=== PATIENT | female | born 1990 | race Caucasian/White ===

== ENCOUNTER 2016-05-31 07:30 | Inpatient (IN) | payer OTHER ==
[~2016-05-31] VITALS: Ht 152.4 cm; Wt 63.5 kg
[2016-05-31 08:22] LABS: HEMOGLOBIN 11.2 gm/dl (12.3-15.3); RED BLOOD COUNT 4.21 M/UL (4.00-5.10); WHITE BLOOD COUNT 15.6 K/UL (4.5-11.0)
[2016-06-01 03:58] LABS: HEMOGLOBIN 8.8 gm/dl (12.3-15.3)
== END 2016-06-03 12:26 | disposition home or self-care (01) | DRG 765 ==
LOC: OB 07:39
PROVIDERS: ADMIT Obstetrics & Gynecology
PROC: 10D00Z1 Extraction of Products of Conception, Low, Open Approach (ICD-10-PCS; principal; 2016-05-31 07:30)
DX: O34.211 Maternal care for low transverse scar from previous cesarean delivery (principal); O99.324 Drug use complicating childbirth; N85.8 Other specified noninflammatory disorders of uterus; F11.10 Opioid abuse, uncomplicated; Z3A.39 39 weeks gestation of pregnancy; Z37.0 Single live birth; O99.333 Smoking (tobacco) complicating pregnancy, third trimester; Z88.0 Allergy status to penicillin
CPT/HCPCS: 36415; 80307; 81001; 82800; 85014; 85018; 85025; C9113; J1200; J1580; J1885; J2270; J2274; J2405; J2590; J2765; J7120

== ENCOUNTER 2020-08-29 06:05 | Inpatient (IN) | payer OTHER ==
[~2020-08-29] VITALS: Ht 152.4 cm; Wt 73.5 kg
[2020-08-29 06:46] LABS: HEMOGLOBIN 12.4 gm/dl (12.3-15.3); RED BLOOD COUNT 4.33 M/UL (4.00-5.10); WHITE BLOOD COUNT 16.1 K/UL (4.5-11.0)
[2020-08-29] MEDS ORDERED: SUBOXONE 4 MG-1 EACH SL (07:35)
[2020-08-29] MEDS ORDERED: MACROBID 100 M100 MG PO (07:36)
[2020-08-29] MEDS ORDERED: HYDROCODON-ACE1 EAC6 PO (09:39)
[2020-08-29] MEDS ORDERED: IBUPROFEN600 MG PO (09:39)
[2020-08-29] MEDS ORDERED: COLACE 100MG C100 MG PO (09:39)
[2020-08-30 06:31] LABS: HEMOGLOBIN 8.4 gm/dl (12.3-15.3)
== END 2020-08-31 16:01 | disposition home or self-care (01) | DRG 787 ==
LOC: OB 06:05
PROVIDERS: ADMIT Obstetrics & Gynecology
PROC: 4A1HXCZ Monitoring of Products of Conception, Cardiac Rate, External Approach (ICD-10-PCS; 2020-08-29)
PROC: 10D00Z1 Extraction of Products of Conception, Low, Open Approach (ICD-10-PCS; principal; 2020-08-29 09:00)
DX: O34.211 Maternal care for low transverse scar from previous cesarean delivery (principal); O98.42 Viral hepatitis complicating childbirth; O99.324 Drug use complicating childbirth; Z20.822 Contact with and (suspected) exposure to COVID-19; F11.20 Opioid dependence, uncomplicated; Z37.0 Single live birth; Z3A.39 39 weeks gestation of pregnancy; B19.20 Unspecified viral hepatitis C without hepatic coma; O99.344 Other mental disorders complicating childbirth; F43.10 Post-traumatic stress disorder, unspecified; F41.9 Anxiety disorder, unspecified; F32.9 Major depressive disorder, single episode, unspecified
CPT/HCPCS: 36415; 71045; 80307; 81001; 82800; 85014; 85018; 85025; 94760; C9113; J1580; J1650; J1885; J2274; J2405; J2590; J3010; J7120; U0002